=== PATIENT | female | born 1940 | race Caucasian/White ===

== ENCOUNTER 2019-06-28 09:42 | Emergency (ER) | payer MEDICARE ==
--- OUTSIDE RECORDS SUMMARY | 2019-06-28 10:08 | XMS REPORT | Continuity of Care Document ---
:1940 Author Organization [facility] Address [address], [place] [id number] Phone Care Team Providers Name Role Phone Gem Elaine MD Unavailable Unavailable Allergies, Adverse Reactions, Alerts Substance Reaction Status oxycodone Active hydrocodone Active Methotrexate Analogues Active sulfasalazine Active Medications Medication Instructions Dosage Effective Dates Status Comments (start - stop) prednisone 5 mg take 1 tablet by 5 MG - Active tablet oral route every 2 days IBUPROFEN 600 MG TAKE ONE TABLET BY 600 MG - Active TABLET MOUTH EVERY 12 HOURS WITH FOOD NEEDED Xeljanz 5 mg take 1 tablet by 5 MG - Active tablet oral route 2 times every day omeprazole 20 mg take 1 capsule 20 MG - Active Cap, Delayed (20MG) by oral Release route every day before a meal oxybutynin take 1 tablet by 5 MG - Active chloride ER 5 mg oral route every tablet,extended day release 24 hr alendronate 70 mg take 1 tablet by 70 MG - Active tablet oral route every week in the morning, at least 30 min before first food, beverage, or medication of day SPIRIVA RESPIMAT inhale 2 puff by Not Available - Active (unknown strength) inhalation route every day ADVAIR HFA inhale 2 puff by Not Available - Active (unknown strength) inhalation route 2 times every day in the morning and evening tramadol 50 mg take 2 Tablet by 100 MG - Active tablet oral route every 12 hours as needed amlodipine 10 mg take 1 tablet 10 MG - Active tablet (10MG) by oral route every day losartan 25 mg take 1 tablet 25 MG - Active tablet (25MG) by oral route every day Aggrenox 200 mg-25 take 1 capsule by 1.00 capsule - Active mg 12 hr Cap oral route 2 times every day in the morning and evening Calcium 500 + D take 2 by Oral 2 - Active 500 mg (1,250 route every day mg)-200 unit Tab VITAMIN C (unknown taken daily as Not Available - Active strength) directed. multivitamin Tab take 1 tablet by - Active oral route every day with food VYTORIN (unknown unknown strength Not Available - Active strength) used as directed. PREDNISONE 5 MG TAKE ONE TABLET 5 MG - No Longer TABLET EVERY 2 DAYS Active NEEDED Problems Condition Effective Dates Clinical Status Comments (start - stop) Rheu arthritis w rheu factor mult site w/o org/sys involv Other ocean transportation intermediary (current) drug therapy Rheu arthritis w rheu factor mult site w/o org/sys involv Other skilled nursing (current) drug therapy Rheu arthritis w rheu factor mult site w/o org/sys involv Other skilled nursing (current) drug therapy Rheu arthritis w rheu factor mult site w/o org/sys involv Other skilled nursing (current) drug therapy Rheu arthritis w rheu factor mult site w/o org/sys involv Other ocean transportation intermediary (current) drug therapy Rheu arthritis w rheu factor mult site w/o org/sys involv Other skilled nursing (current) drug therapy Rheumatoid arthritis w/ rheumatoid factor of multiple sites w/o organ involvement Other ocean transportation intermediary drug therapy Pain in lt knee Pain in rt knee Rheumatoid arthritis w/ rheumatoid factor of multiple sites w/o organ involvement Other skilled nursing drug therapy Abnormal weight loss Rheumatoid arthritis w/ rheumatoid factor of multiple sites w/o organ involvement Other skilled nursing drug therapy Varicose veins of right leg w/ edema Rheumatoid arthritis w/ rheumatoid factor of multiple sites w/o organ involvement Other ocean transportation intermediary drug therapy Other ocean transportation intermediary drug therapy Rheumatoid arthritis w/ rheumatoid factor of multiple sites w/o organ involvement Other specified abnormal findings of blood chemistry Other skilled nursing drug therapy Back pain Other skilled nursing drug therapy Rheumatoid arthritis w/ rheumatoid factor of multiple sites w/o organ involvement Other specified abnormal findings of blood chemistry Other ocean transportation intermediary drug therapy Rheumatoid arthritis w/ rheumatoid factor of multiple sites w/o organ involvement Other specified abnormal findings of blood chemistry Other skilled nursing drug therapy Back pain Rheumatoid arthritis w/ rheumatoid factor of multiple sites w/o organ involvement Other specified abnormal findings of blood chemistry Other ocean transportation intermediary drug therapy Rheumatoid arthritis w/ rheumatoid factor of multiple sites w/o organ involvement Other ocean transportation intermediary drug therapy Other specified abnormal findings of blood chemistry Rheumatoid arthritis w/ rheumatoid factor of multiple sites w/o organ involvement Other ocean transportation intermediary drug therapy Other specified abnormal findings of blood chemistry Rheumatoid factor positive - Active Rheumatoid arthritis - Active Mapped from [facility] Chronic Conditions table on 08/18/2014 by the ICD9 to [employer] Bulk Mapping Utility. The mapped diagnosis code was Rheumatoid Arthritis, 714.0, added by Gem Elaine MD, with responsible provider Gem Elaine MD, MD. Onset date 02/20/2012; last addressed on 02/18/2014. Hypercholesterolemia Active Chronic obstructive lung Active disease Procedures Procedure Date No information Results Test Name Date and Time Measure Units Reference Range Abnormal Flag Status Comments No information Advance Directives Directive Yes / No Effective Date File Name No information Encounters Encounter Practice Location Reason(s) Diagnoses Date Provider Providers Description For Visit Copied on Encounter Arthritis Arthritis [facility] [place] Specialist: [facility] arthritis Gem. [address] Jaycob Valdovinos [address] [facility], 5794 PLLC [facility] site w/o [facility]/s [place], [place], [address]. [place], skilled nursing [id number], tel:[phone] [place], (current) [place]. [id number] [id number], drug therapy tel:[phone] Provider: [id number] Martir tel:[phone] [facility], [id number] [place]. tel:[phone] Arthritis Arthritis [place] [facility] Gem. [address] PLLC, 5794 PLLC [facility] [place], [place], [place], [place], [id number], [place]. [id number], tel:[phone] tel:[phone] Arthritis Arthritis [facility] Jasmine Specialist: [facility] arthritis WAREHOUSE HANDLER C Jaycob Valdovinos [facility]. [address] [facility], 5[address] PLLC mult site w/o [address], [facility] [place], [place], [facility] [place], [address]. [place], ocean transportation intermediary [place], tel:[phone] [place], [place]) [place], [id number] [id number], drug therapy [id number], ng Provider: [facility]. Martir tel:[phone] tel:[phone] S[place], [id number] [place]. tel:[phone] Arthritis Arthritis Rheu Sep- Jasmine Specialist: Health Health arthritis w WAREHOUSE HANDLER Jaycob [facility] rheu factor 9 Martir. [address] [facility], [address] [place] [address] site w/o [address] [facility], [facility] [place], [place], [place], [address]. [place], skilled nursing [place], tel:[phone] [place], [place], [id number] [id number], drug therapy [id number], ng Provider: [place] . Martir tel:[phone] tel:[phone] [place], [id number] [place]. tel:[phone] [facility] Jasmine Specialist: Health Health arthritis w WAREHOUSE HANDLER Jaycob [facility] rheu factor 8 Martir. [address] [facility], [address] [place] [address] site w/o 5794 [facility] [place], [place], [facility] [place], [address]. [place], skilled nursing [place], tel:[phone] [place], [place]) [place], [id number] [id number], drug therapy [id number], ng Provider: [facility]. Martir tel:[phone] tel:[phone] [place]asha, [id number] 923450 [place]. tel:[phone] Arthritis Arthritis Rheu Sep-2 Taye WAREHOUSE HANDLER-C Specialist: [facility] arthritis Gale. 5[address] Angel Hunter, Associates Associates [facility] factor 8 [facility] [address] [facility], 5794 PLLC mult site w/o [place], [facility], [facility]/sys [place], [place], [place], [address]. [place], ocean transportation intermediary [id number], tel:[phone] [place], ([place]) [place]. [id number] [id number], drug therapy tel:[phone] ng Provider: [id number] Martir tel:[phone] [place], 056310 [place]. tel:[phone] Arthritis Arthritis Sep-0 Taye WAREHOUSE HANDLER-C [facility] Gale. [address] Associates [facility] [address] [place] [address] PLLC, 5794 PLLC [place], [facility] [place], [place], [place], [id number], [place], [place]. [id number], tel:[phone] [place] 533145 tel:[phone] Arthritis Arthritis Aug-0 Taye WAREHOUSE HANDLER-C [facility] Gale. [address] [facility] [address] [place] [address] PLLC, 5794 PLLC [place], [facility] [place], [place], [place], [id number], [place], [place]. [id number], tel:[phone] [place] [phone] tel:[phone] Arthritis Arthritis [facility] Taye WAREHOUSE HANDLER-C Specialist: [facility] arthritis Gale. 5794 Angel Hunter, Associates Associates [facility] factor 8 [facility] [address] [facility], 5794 PLLC mult site w/o [place], [facility], [facility]/sys [place], [place], [place], [place], [address]. [place], ocean transportation intermediary [id number], tel:[phone] [place], ([place]) [place]. [address]Eosgnuy [id number], drug therapy tel:[phone] ng Provider: [id number] Martir tel:[phone] [place], [id number] [place]. tel:[phone] Arthritis Arthritis Rheumatoid Taye WAREHOUSE HANDLER-C Specialist: Health Health arthritis [place]. 5[address] Jaycob Valdovinos Associates rheumatoid 8 [place] [address] [facility], 5794 PLLC factor of [place], Road, [facility] multiple [place], [place], sites [place], [address]. [place], organ [id number], tel:[phone] [place], [place]. [id number] [id number], her skilled nursing tel:[phone] ng Provider: [place] drug [id number] Martir tel:[phone] therapyPain Sasha, [id number] in lt [place]. kneePain in tel:[phone] [place] [phone] Arthritis Arthritis Rheumatoid Taye WAREHOUSE HANDLER-C Specialist: Health Health arthritis Gale. 5[address] Jaycob Valdovinos Associates rheumatoid 8 [place] [address] [facility], 5794 PLLC factor of [place], Road, [facility] multiple [place], [place], [place], sites w/[place], [address]. [place], organ [id number], tel:[phone] [place], [place]. [address]Glptgvs [id number], her ocean transportation intermediary tel:[phone] ng Provider: [place] drug [id number] Martir tel:[phone] therapyAbnorm Sasha, [id number] al weight [place]. loss tel:[phone] Arthritis Arthritis Rheumatoid Taye WAREHOUSE HANDLER-C Specialist: Health Health arthritis w Gale. 5794 Jaycob Valdovinos Associates rheumatoid 7 [place] [address] [facility], 5794 PLLC factor of [place], Road, [facility] multiple [place], [place], sites w/[place], [address]. [place], organ [id number], tel:[phone] [place], [place]. [id number], her skilled nursing tel:[phone] ng Provider: drug [id number] Martir tel:[phone] therapyVarico Sasha, 152766 se veins of [place]. right leg w/ tel:[phone] Arthritis Arthritis Rheumatoid [facility] Referring Health Health arthritis PA-C Provider: Jaycob Devries rheumatoid 7 Lucas. Martir PLLC, 5794 PLLC factor of 5794 [facility], [facility] [place]. [place], [facility] w/o [place], tel:[phone] [place], organ [place], [address] [place], involvementOt [place], [id number], her ocean transportation intermediary [id number], [place] drug therapy [place]. tel:[phone] tel:[phone] Arthritis Arthritis Other long Taye WAREHOUSE HANDLER-C Health Health term drug Gale. 5794 Associates [facility] therapy 7 [facility], 5794 PLLC [facility] [place], [place], [place], [id number], [place], [place]. [id number], tel:[phone] [place] [phone] tel:[phone] Arthritis Arthritis Rheumatoid Taye WAREHOUSE HANDLER-C Referring Health Health arthritis Gale. 5794 Provider: Jaycob Devries rheumatoid 7 [facility] Martir PLL[facility], 5794 PLLC factor of [place], [facility], [facility] multiple [place], [place], [place]. [place], [facility] w/o [place], tel:[phone] [place], organ [id number], [address] [place], involvementOt [place]. [id number], her specified tel:[phone] [place] abnormal [id number] tel:[phone] findings of 837703 blood chemistryOthe r ocean transportation intermediary drug therapyBack pain Arthritis Arthritis Other long Taye WAREHOUSE HANDLER-C Health Health term drug - Gale. 5794 Associates [facility] therapy 6 [facility], 5794 PLLC [facility] [place], [place], [place], [id number], [place], [place]. [id number], tel:[phone] [place] 695537 tel:[phone] Arthritis Arthritis Rheumatoid Taye WAREHOUSE HANDLER-C Referring [facility] arthritis Gale. 5794 Provider: Jaycob [address] Martir PLLC, 5794 PLLC factor of [facility] multiple [place], [place]. [place], [facility] w/o [place], tel:[phone] [place], organ [id number], [address] [place], involvementOt [place]. [id number], her specified tel:[phone] [place] abnormal [id number] tel:[phone] findings of 578103 blood chemistryOthe r skilled nursing drug therapy Arthritis Arthritis Rheumatoid Taye WAREHOUSE HANDLER-C Consulting [facility] arthritis Gale. 5794 Provider: Jaycob [address] PLLC, 5794 PLLC factor of [facility] [place], Hematology [place], [facility] w/o [place], Oncology [place], organ [id number], 500[address] [place], involvementOt [place]. [facility] [id number], her specified tel:[phone] [place] abnormal [id number] 700, E. tel:[phone] findings of [place], 911708 [place], [address]. chemistryOthe tel:[phone] r ocean transportation intermediary 265[address]Qnqvaty drug ng Provider: [facility], [place]. tel:[phone] Arthritis Arthritis Rheumatoid Taye WAREHOUSE HANDLER-C Consulting [facility] arthritis Gale. 5794 Provider: Jaycob [address] PLLC, 5794 PLLC factor of [facility] multiple [place], Hematology [place], sites w/o [place], Oncology [place], organ [id number], 500[address] [place], involvementOt [place]. [facility] [id number], her specified tel:[phone] [place] abnormal [id number], E. tel:[phone] findings of [place], 193628 [place], [address]. chemistryOthe tel:[phone] r ocean transportation intermediary 624[address]Iptvsae drug therapy ng Provider: Martir Baez, [place]. tel:[phone] Arthritis Arthritis Rheumatoid Taye WAREHOUSE HANDLER-C Consulting [facility] arthritis Gale. 5794 Provider: Jaycob deal 6 [facility] PLL[facility], 5794 PLLC factor of [place], [facility], [facility] multiple [place], Hematology [place], [facility] w/o [place], Oncology [place], organ [id number], 5008 [place], involvementOt [place]. [facility] [id number], her ocean transportation intermediary tel:[phone] [place] drug [id number] 700, E. tel:[phone] therapyOther [place], 486626 [place], [address]. abnormal tel:[phone] findings of [address]Avuuuxw blood ng Provider: chemistry Martir Baez, [place]. tel:[phone] Arthritis Arthritis Rheumatoid Taye WAREHOUSE HANDLER-C Referring [facility] arthritis Gale. 5794 Provider: Jaycob deal 5 [facility], 5794 PLLC factor of [place], [facility], [facility] [place], [place]. [place], [facility] w/o [place], tel:[phone] [place], organ [id number], [address] [place], involvementOt [place]. [id number], her skilled nursing tel:[phone] [place] drug [id number] tel:[phone] therapyOther 320692 specified abnormal findings of blood chemistry Arthritis Arthritis [place] Referring [facility] Gem. 5794 Provider: Jaycob Devries [address] [place] [address] [facility] PLLC, 5794 PLLC [facility], [facility] [place], [place]. [place], tel:[phone] [place], [id number], [address] [place], [place]. [id number], tel:[phone] [place] 267676 tel:[phone] Arthritis Arthritis Taye WAREHOUSE HANDLER-C Referring [facility] Gale. 5794 Provider: Associates Associates 5 [facility], 5794 PLLC [place], Sasha, [facility] [place], [place]. [place], tel:[phone] [place], [id number], [address] [place], [place]. [id number], tel:[phone] [place] 347956 tel:[phone] Arthritis Arthritis May-0 Taye WAREHOUSE HANDLER-C Referring Health Health 7-201 Gale. 5794 Provider: Associates Associates 4 [facility], 5794 PLLC [place], [facility], [facility] [place], [place]. [place], tel:[phone] [place], [id number], [address] [place], [place]. [id number], tel:[phone] [place] 552035 tel:[phone] Arthritis Arthritis Dec-0 Taye WAREHOUSE HANDLER-C Referring Health Health 9-201 Gale. 5794 Provider: Associates Associates 3 [facility], 5794 PLLC [place], [facility], [facility] [place], [place]. [place], tel:[phone] [place], [id number], [address] [place], [place]. [id number], tel:[phone] [place] 472991 tel:[phone] Arthritis Arthritis Jan- [place]ELTON Referring Health Health 2-201 Gem. 5794 Provider: Associates Associates 3 [facility], 5794 PLLC [place], [facility], [facility] [place], [place]. [place], tel:[phone] [place], [id number], [address] [place], [place]. [id number], tel:[phone] [place] 314598 tel:[phone] Arthritis Arthritis Aug-2 Taye WAREHOUSE HANDLER-C Referring Health Health 6-201 Gale. 5794 Provider: Associates Associates 3 [facility], 5794 PLLC [place], Sasha, [facility] [place], [place], [place]. [place], tel:[phone] [place], [id number], [address] [place], [place]. [id number], tel:[phone] [place] 105361 tel:[phone] Arthritis Arthritis Nov-2 Taye WAREHOUSE HANDLER-C Referring [facility] Health 7-201 Gale. 5794 Provider: Jaycob Devries 2 [facility] Martir [facility], 5794 PLLC [place], [facility], [facility], [place], [place]. [place], tel:[phone] [place], [id number], [address] [place], [place]. [id number], tel:[phone] [place] 804487 tel:[phone] Arthritis Arthritis Nov-1 Taye WAREHOUSE HANDLER-C Referring Health Health 2-201 [place]ale. 5794 Provider: Jaycob Devries 2 [facility], 5794 PLLC [place], [facility], [facility], [place], [place], tel:[phone] [place], [id number], [address] [place], [place]. [id number], tel:[phone] [place] 813127 tel:[phone] Arthritis Arthritis Triston-2 Taye WAREHOUSE HANDLER-C Referring [facility] Health 8-201 Gale. 5794 Provider: Jaycob Devries 1 [facility], 5794 PLLC [place], [facility], [facility], [place], [place], tel:[phone] [place], [id number], [address] [place], [place]. [id number], tel:[phone] [place] 058281 tel:[phone] Arthritis Arthritis May-0 Stoianoff Referring [facility] Health 6-201 WAREHOUSE HANDLER-C Provider: Associates Associates 1 Carol. Weiss Martir PLLC, 5794 PLLC [facility], [facility], [place], [place]. [place], [place], tel:[phone] [place], [address] [place], [id number], [id number], [place]. [place] tel:[phone] tel:[phone] [id number] Family History Family Member Diagnosis Age At Onset Daughter Rheumatoid arthritis Immunizations Vaccine Date Status Comments Influenza, injectable, MDCK, administered Source: Other Provider Flucelvax Quad 2017-2018Y Influenza, injectable, administered Source: New Immunization trivalent, split virus, 4 Record years and older, Fluvirin [id number] Influenza, split virus, administered Note: approx ; Source: Other injectable, 3 years and older Provider Fluvirin [id number] Influenza virus vaccine, administered Source: Other Provider Injection Influenza virus vaccine, administered Source: Other Provider Injection Not receiving Zoster administered Source: New Immunization Record pneumo (2 yrs or older) administered Source: Other Provider (PPV23) Influenza virus vaccine, administered Source: Other Provider Injection Yet to receive administered Source: Source Unspecified pneumo (2 yrs or older) administered Source: Other Provider (PPV23) Influenza, injectable, MDCK, administered Source: Other Provider preservative free, 0.5 mL dosage, Flucelvax Quad Payers Payer name Insurance type Covered green party ID Authorization(s) Blue [employer] Medicare 16 [id number] [employer] Medicare 16 [id number] Social History Type Description Quantity Date Captured Comments Alcohol Use Details Unknown Caffeine Use Details Unknown Tobacco Use Status Unknown Smoking Status Unknown Sex Female Vital Signs Date / Height Weight BMI Pulse Blood Temperature Respiratory Body Head BMI Pulse Inhaled Time: Rate Pressure Rate Surface Circumference percentile Ox Ox Area No information Chief Complaint And Reason For Visit No information Reason For Referral Reason For Referral No information Plan Of Treatment Date Type Action Status Goal Tobacco cessation counseling completed Goal Tobacco cessation counseling completed Goal Tobacco cessation counseling completed Goal Tobacco cessation counseling completed Referral Ordered: ordered *KNEE X-RAY, 1 OR 2 VIEWS Referral Ordered: ordered EXTREMITY STUDY Right Referral Ordered: ordered Referrals: Hematology. Evaluate and treat Appointment date/timeframe: 08/03/2015 Referral Referred To: ordered [facility]- hand surgeon Ordered: Referral: [facility]- hand surgeon. Consult. Appointment Jeane Moss BOOKED History Of Present Illness Encounter Date Complaint History Of Present Illness No information Functional Status Date Functional Assessment No information Medications Administered Medication Instructions Dosage Effective Dates (start - stop) Status Comments No information Instructions Date Instruction Additional Information Risks/benefits of medications reviewed Labs ordered to check disease activity. Call if symptoms return Labs ordered to check blood counts, liver and kidney functions to monitor safety of medication. Discussed / Reviewed Labs continue same medication plan call if symptoms worsen Labs ordered to check blood counts, liver and kidney functions to monitor safety of medication. Discussed / Reviewed Labs continue same medication plan call if symptoms worsen Labs ordered to check disease activity. Call if symptoms return Risks/benefits of medications reviewed Discussed / Reviewed Labs continue same medication plan call if symptoms worsen Risks/benefits of medications reviewed Labs ordered to check disease activity. Labs ordered to check blood counts, liver and kidney functions to monitor safety of medication. Daily range of motion exercises for symptomatic joints recommended. Reviewed importance of compliance/adherence to medications prescribed Avoid live vaccines Labs ordered to check blood counts, liver and kidney functions to monitor safety of medication. Daily range of motion exercises for symptomatic joints recommended. Discussed / Reviewed Labs hold medication and call if any side effect develops continue same medication plan call if symptoms worsen Conservative medical care measures discussed. Moderate activities regarding symptomatic joints. Labs ordered to check disease activity. Reviewed importance of compliance/adherence to medications prescribed Avoid live vaccines Labs ordered to check blood counts, liver and kidney functions to monitor safety of medication. Discussed / Reviewed Labs hold medication and call if any side effect develops call if symptoms worsen Risks/benefits of medications reviewed Labs ordered to check disease activity. Labs ordered to check blood counts, liver and kidney functions to monitor safety of medication. Discussed / Reviewed Labs hold medication and call if any side effect develops Discussed importance of holding DMARDs/ biologics if patient develops an infection and to notify the treating physician Reviewed importance of compliance/adherence to medications prescribed Avoid OTC NSAIDS Avoid live vaccines Stretching Avoid live vaccines Discussed importance of holding DMARDs/ biologics if patient develops an infection and to notify the treating physician Stretching Reviewed importance of compliance/adherence to medications prescribed Avoid OTC NSAIDS Reviewed importance of compliance/adherence to medications prescribed Avoid live vaccines Discussed importance of holding DMARDs/ biologics if patient develops an infection and to notify the treating physician Stretching Reviewed importance of compliance/adherence to medications prescribed Avoid live vaccines Exercise more Discussed importance of holding DMARDs/ biologics if patient develops an infection and to notify the treating physician Stretching Discussed importance of holding DMARDs/ biologics if patient develops an infection and to notify the treating physician Avoid live vaccines Reviewed importance of compliance/adherence to medications prescribed Discussed importance of holding DMARDs/ biologics if patient develops an infection and to notify the treating physician Reviewed importance of compliance/adherence to medications prescribed Avoid live vaccines
--- OUTSIDE RECORDS SUMMARY | 2019-06-28 10:08 | XMS REPORT | Continuity of Care Document ---
:1940 Author Organization [facility] Address [address] [place], [place] [id number] Phone Care Team Providers Name Role Phone [...] factor mult site w/o org/sys involv Other exterminator helper termite (current) drug therapy Rheu arthritis w rheu factor mult site w/o org/sys involv Other longterm (current) drug therapy Rheu arthritis w rheu factor mult site w/o org/sys involv Other longterm (current) drug therapy Rheu arthritis w rheu factor mult site w/o org/sys involv Other longterm (current) drug therapy Rheu arthritis w rheu factor mult site w/o org/sys involv Other exterminator helper termite (current) drug therapy Rheu arthritis w rheu factor mult site w/o org/sys involv Other longterm (current) drug therapy Rheumatoid arthritis w/ rheumatoid factor of multiple sites w/o organ involvement Other exterminator helper termite drug therapy Pain in lt knee Pain in rt knee Rheumatoid arthritis w/ rheumatoid factor of multiple sites w/o organ involvement Other longterm drug therapy Abnormal weight loss Rheumatoid arthritis w/ rheumatoid factor of multiple sites w/o organ involvement Other longterm drug therapy Varicose veins of right leg w/ edema Rheumatoid arthritis w/ rheumatoid factor of multiple sites w/o organ involvement Other exterminator helper termite drug therapy Other exterminator helper termite drug therapy Rheumatoid arthritis w/ rheumatoid factor of multiple sites w/o organ involvement Other specified abnormal findings of blood chemistry Other longterm drug therapy Back pain Other longterm drug therapy Rheumatoid arthritis w/ rheumatoid factor of multiple sites w/o organ involvement Other specified abnormal findings of blood chemistry Other exterminator helper termite drug therapy Rheumatoid arthritis w/ rheumatoid factor of multiple sites w/o organ involvement Other specified abnormal findings of blood chemistry Other longterm drug therapy Back pain Rheumatoid arthritis w/ rheumatoid factor of multiple sites w/o organ involvement Other specified abnormal findings of blood chemistry Other exterminator helper termite drug therapy Rheumatoid arthritis w/ rheumatoid factor of multiple sites w/o organ involvement Other exterminator helper termite drug therapy Other specified abnormal findings of blood chemistry Rheumatoid arthritis w/ rheumatoid factor of multiple sites w/o organ involvement Other exterminator helper termite drug therapy Other specified abnormal findings of blood chemistry Rheumatoid factor positive - Active Rheumatoid arthritis - Active Mapped from [facility] Chronic Conditions table on 08/18/2014 by the ICD9 to [employer] Bulk Mapping Utility. The mapped diagnosis code was Rheumatoid Arthritis, 714.0, added by Gem Elaine MD, with responsible provider Gem Elaine MD, MD. Onset date 02/20/2012; last addressed on 02/18/2014. Hypercholesterolemia Active Chronic obstructive lung Active disease Procedures Procedure Date ROUTINE VENIPUNCTURE COMPLETE CBC W/AUTO DIFF WBC RBC SED RATE, AUTOMATED C-REACTIVE PROTEIN ASSAY OF CREATININE OFFICE/OUTPATIENT VISIT, EST TRANSFERASE (AST) (SGOT) ALANINE AMINO (ALT) (SGPT) ASSAY OF SERUM ALBUMIN Results Test Name Date and Time Measure Units Reference Range Abnormal Flag Status Comments Panel Description: CBC Final WBC 14:51:00 7.8 10*3/uL 3.7-10.1 Final RBC 14:51:00 5.14 10*6/uL 3.50-5.50 Final HGB 14:51:00 14.0 g/dL 12.0-16.0 Final HCT 14:51:00 45.6 % 36.0-48.0 Final MCV 14:51:00 88.6 fL 80.0-100.0 Final MCH 14:51:00 27.2 pg 26.0-34.0 Final MCHC 14:51:00 30.7 g/dL 31.0-37.0 L Final RDW 14:51:00 16.0 % 10.0-15.0 H Final PLATELETS 14:51:00 287 10*3/uL 150-500 Final MPV 14:51:00 5.6 fL 6.0-10.0 L Final BARRERA# 14:51:00 5.19 10*3/uL 2.10-8.00 Final LYM# 14:51:00 1.67 10*3/uL 1.00-5.00 Final MONO# 14:51:00 0.72 10*3/uL 0.10-1.00 Final EOS# 14:51:00 0.1 10*3/uL 0.0-0.5 Final BASO# 14:51:00 0.1 10*3/uL 0.0-0.2 Final BARRERA% 14:51:00 66.9 % 50.0-80.0 Final LYM% 14:51:00 21.5 % 25.0-50.0 L Final MONO% 14:51:00 9.3 % 2.0-10.0 Final EOS% 14:51:00 1.4 % 0.0-5.0 Final BASO% 14:51:00 0.9 % 0.0-4.0 Final Panel Description: ESR Final ESR 14:51:00 34 mm/Hr 0-20 H Final Panel Description: ALBUMIN Final ALB 14:51:00 3.7 g/dL 3.4-4.4 Final Panel Description: ALT Final ALT 14:51:00 13 U/L 30-65 L Final Panel Description: AST Final AST 14:51:00 24 U/L 15-37 Final Panel Description: CREATININE Final CREATININE 14:51:00 1.1 mg/dL 0.6-1.2 Final eGFR 14:51:00 48.2 mL/min/1.73m Final Panel Description: CRP Final CRP 14:51:00 3.0 mg/dL 0.0-1.0 H Final Advance Directives Directive Yes / No Effective Date File Name No information Encounters Encounter Practice Location Reason(s) Diagnoses Date Provider Providers Description For Visit Copied on Encounter OFFICE/OUTPA Arthritis Arthritis Rheumatoid Rheu [place] SKELTON Specialist: KIKI NEWSOME, [facility] arthritis arthritis w Gem. [address] [facility] ([facility] factor 9 [facility] [address] complaint) [facility] w/o org/sys [place], [facility] [place], [address]. [place], exterminator helper termite [id number], tel:[phone] [place], (current) [place]. [id number], drug therapy tel:[phone] ng Provider: [id number] Martir tel:[phone] [place], [id number] [place] tel:[phone] Arthritis Arthritis Rheu Jasmine Specialist: [facility] Health arthritis w RADIO REPAIRER DOMESTIC Meena [facility] factor 9 [facility]. [address], [address] [facility] site [address] [place] [address] w/o org/sys [facility] [place], [place], [facility] [place], [address]. [place], longterm [place], tel:[phone] [place], ([place]) [place], [id number], drug therapy [id number], ng Provider: . Martir tel:[phone] tel:[phone] [place]asha, [phone] [id number] [place]. tel:[phone] Arthritis Arthritis Rheu Jasmine Specialist: [facility] arthritis w RADIO REPAIRER DOMESTIC [facility] factor 9 [facility]. [address], [address] [facility] [address] [place] [address] w/o org/sys [facility] [place], [place], [place], [address]. [place], exterminator helper termite [place], tel:[phone] [place], ([place], [id number], drug therapy [id number], ng Provider: [facility]. Martir tel:[phone] tel:[phone] Sasha, [phone] [place]. tel:[phone] Arthritis Arthritis Rheu Jasmine Specialist: Health Health arthritis w RADIO REPAIRER DOMESTIC C [facility] rheu factor 8 Martir. [address], [address] mult site [address] [facility] w/o org/sys [facility] [place], [place], [address]. [place], longterm [place], tel:[phone] [place], [place], [id number] [id number], drug therapy [id number], ng Provider: [place] . Martir tel:[phone] tel:[phone] Sasha, 916847 968017 [place]. tel:[phone] Arthritis Arthritis Rheu Specialist: Health Health arthritis w [facility] rheu factor 8 [address], [address] [facility] w/o org/sys [place], [facility], [address]. [place], longterm tel:[phone] [place], (current) [id number], drug therapy ng Provider: [place] Mcmahan tel:[phone] [place], [id number] [place]. tel:[phone] Arthritis Arthritis Feb-0 [facility] [address], [address], [id number], [place] tel:[phone] Arthritis Arthritis Jan-0 [facility], [address], [id number], [place] tel:[phone] Arthritis Arthritis Rheu Specialist: Health Health arthritis w [facility] rheu factor 8 [address], [address] [facility] w/o org/sys [place], [place], [place], [address]. [place], exterminator helper termite tel:[phone] [place], (current) [id number], drug therapy ng Provider: [place] Mcmahan tel:[phone] [place], [id number] [place]. tel:[phone] Arthritis Arthritis Rheumatoid Specialist: Health Health arthritis [facility] rheumatoid 8 [address], [address] [facility] factor [facility] [place], [place], sites [place], [address]. [place], organ tel:[phone] [place], involvementO [id number], ther long ng Provider: [place] term drug Martir tel:[phone] therapyPain Sasha, [id number] in lt [place]. kneePain in tel:[phone] [place] [phone] Arthritis Arthritis Rheumatoid Specialist: Health Health arthritis [facility] rheumatoid 8 [address], [address] [facility] [facility] multiple [place], [place], sites [place], [address]. [place], organ tel:[phone] [place], involvementO [id number], ther long ng Provider: [place] term drug Martir tel:[phone] therapyAbnor Sasha, [id number] mal weight [place]. loss tel:[phone] Arthritis Arthritis Rheumatoid Specialist: Health Health arthritis [facility] rheumatoid 7 [address], [address] PLL[address] factor [facility] [place], [place], sites [place], [address]. [place], organ tel:[phone] [place], involvementO [id number], ther long ng Provider: [place] term drug Martir tel:[phone] therapyVaric Sasha, 179634 ose veins of [place]. right leg w/ tel:[phone] edema [phone] Arthritis Arthritis Rheumatoid [facility] Health arthritis PA-C Provider: Jaycob Devries rheumatoid 7 Lucas. [facility]ir PLLC, [address] PLLC factor of [address] Sasha, [facility] w/o [place], tel:[phone] [place], organ [place], [address] [place], [place]O [place], [id number], ther long [id number], [place] term drug [place]. tel:[phone] therapy tel:[phone] Arthritis Arthritis Other long [facility] Health term drug Associates Jaycob therapy 7 PLLC, [address], [id number], [place] tel:[phone] Arthritis Arthritis Rheumatoid [facility] arthritis Provider: Jaycob Devries rheumatoid 7 [facility] PLL[facility], [address] PLLC factor of [facility] w/o tel:[phone] [place], organ [address] [place], involvementO [id number], ther [place] specified tel:[phone] abnormal [phone] findings of blood chemistryOth er longterm drug therapyBack pain Arthritis Arthritis Other long [facility] Health term drug Associates Jaycob therapy 6 PLLC, [address], [place], [id number], [place] tel:[phone] Arthritis Arthritis Rheumatoid [facility] arthritis Provider: Jaycob Devries rheumatoid 6 [facility] [facility], [address] PLL[address] factor [place]. [place], [facility] w/o tel:[phone] [place], organ [address] [place], involvementO [id number], ther [place] specified tel:[phone] abnormal [id number] findings of blood chemistryOth er exterminator helper termite drug therapy Arthritis Arthritis Rheumatoid [facility] arthritis Provider: Jaycob Devries rheumatoid 6 Queenie PLLC, [address] PLLC factor of [facility] [place], [facility] w/o Oncology [place], organ [address]8 [place], involvementO [place] [id number], [address] [place] specified 700, E. tel:[phone] abnormal [place], 710481 [place], [address]. blood tel:[phone] chemistryOth [id number] er longterm ng Provider: drug Martir Taylorndi, pain [place]. tel:[phone] Arthritis Arthritis Rheumatoid [facility] arthritis Provider: Jaycob Devries rheumatoid 6 Queen[address] PLLC, 5[address] PLLC factor of [facility], sites w/o Oncology [place], organ [address] [place], involvementO [facility] [place] [id number], [address] [place] specified 700, E. tel:[phone] abnormal [place], 067700 [place], [address]. blood tel:[phone] chemistryOth 157[address]Fnyudof er exterminator helper termite ng Provider: drug therapy Martir Baez, [facility], [place]. tel:[phone] Arthritis Arthritis Rheumatoid Consulting [facility] arthritis Provider: Jaycob Devries rheumatoid 6 [address] PLLC, [address] PLLC factor of [facility], [facility] w/o Oncology [place], organ [address] [place], involvementO [facility] [id number], ther long [address] [place] term drug 700, E. tel:[phone] therapyOther [place], 769109 [place], [address]. abnormal tel:[phone] findings of [address]Atzongw blood ng Provider: chemistry Martir Baez, [facility], [place]. tel:[phone] Arthritis Arthritis Rheumatoid Referring [facility] arthritis Provider: Jaycob Devries rheumatoid 5 [address] PLLC, [address] PLLC factor of [facility] w/o tel:[phone] [place], organ [address] [place], involvementO [id number], ther long [place] term drug tel:[phone] therapyOther [id number] specified abnormal findings of blood chemistry Arthritis Arthritis [place] SKEL[place] [facility] Gem. 5794 Provider: Associates Associates 5 Yemi Mcmahan PLLC, [address] PLL[address] [place], Sasha, [facility] [place], [place], [place], tel:[phone] [place], [id number], [address] [place], [place]. [id number], tel:[phone] [place] 822281 tel:[phone] Arthritis Arthritis Referring [facility] Health Provider: Associates Associates 5 [address] PLLC, [address] PLLC Sasha, [facility] [place]. [place], tel:[phone] [place], [address] [place], [id number], [place] tel:[phone] Arthritis Arthritis October- Referring Health Health Provider: Associates Jaycob 4 [address] [facility], [address] PLLC Sasha, [facility] [place], tel:[phone] [place], [address] [place], [id number], [place] tel:[phone] Arthritis Arthritis May- Referring Health Health Provider: Associates Jaycob 3 [address] [facility], [address] PLLC Sasha, [facility] [place]. [place], tel:[phone] [place], [address] [place], [id number], [place] tel:[phone] Arthritis Arthritis [place] SKELTON Referring Health Health Gem. 5794 Provider: Associates Jaycob 3 [facility] Mc[facility], [address] PLL[address] [place], Sasha, [facility] [place], [place], [place], tel:[phone] [place], [id number], [address] [place], [place]. [id number], tel:[phone] [place] 033274 tel:[phone] Arthritis Arthritis Aug- Referring Health Health Provider: Associates Jaycob 3 [address] [facility], [address] PLL[address] Sasha, [facility] [place], [place]. [place], tel:[phone] [place], [address] [place], [id number], [place] tel:[phone] Arthritis Arthritis Apr- Referring Health Health Provider: Associates Associates 2 [address] PLLC, [address] PLLC Sasha, [place]. [place], tel:[phone] [place], [address] [place], [id number], [place] tel:[phone] Arthritis Arthritis Apr- [facility] 2- Provider: Associates Jaycob 2 [address] PLLC, [address] PLLC Sasha, [place], tel:[phone] [place], [address] [place], [id number], [place] tel:[phone] Arthritis Arthritis Dec- [facility] 8 Provider: Associates Associates 1 [address] [facility]C, [address] PLLC Sasha, [place], tel:[phone] [place], [address] [place], [id number], [place] tel:[phone] Arthritis Arthritis [facility] 6 RADIO REPAIRER DOMESTIC-C Provider: Associates Jaycob 1 Ainsley. Isela [facility] PLLC, [address] PLL[address] S Beauty Sasha, [facility] [address], [place]. [place], [place], tel:[phone] [place], [address] [place], [id number], [id number], [place]. [place] tel:[phone] tel:[phone] [phone] Family History Family Member Diagnosis Age At Onset Daughter Rheumatoid arthritis Immunizations Vaccine Date Status Comments Influenza, injectable, MDCK, administered Source: Other Provider Flucelvax Quad 2017-2018Y Influenza, injectable, administered Source: New Immunization trivalent, split virus, 4 Record years and older, Fluvirin [id number] Influenza, split virus, administered Note: approx ; Source: Other injectable, 3 years and older Provider Fluvirin [id number] Influenza virus vaccine, administered Source: Other Provider [...] Quad Payers Payer name Insurance type Covered libertarian ID Authorization(s) Blue Shield Medicare 16 [id number] Blue [employer] Medicare 16 [id number] Social History Type Description Quantity Date Captured Comments Alcohol Use Details Caffeine Use Details coffee 3 cups per day Tobacco Use Status Ex-cigarette smoker Smoking Status Former smoker Smoking Tobacco Use Cigarette: No Details Available Cigarette: No Details Available Details Sex Female Vital Signs Date / Height Weight BMI Pulse Blood Temperature Respiratory Body Head BMI Pulse Inhaled Time: Rate Pressure Rate Surface Circumference percentile Ox Ox Area 61.00 121.00 22.8 130/70 in lbs 6 mm[Hg] 2:27 kg/m PM eter (2) Chief Complaint And Reason For Visit Most recent encounter only, dated '05/22/2019 14:20'. Rheumatoid arthritis (chief complaint). Description: The pain severity is 3/10. Patient denies having generalized morning stiffness, fever, rash, oral ulcers (mouth sores) and shortness of breath (dyspnea). Reason For Referral Reason For Referral No [...] Encounter Date Complaint History Of Present Illness Rheumatoid arthritis The pain severity is 3/10. Patient denies having generalized morning stiffness, fever, rash, oral ulcers (mouth sores) and shortness of breath (dyspnea). Functional Status Date Functional Assessment No information [...] symptomatic joints recommended. Discussed / Reviewed Labs continue same medication plan call if symptoms worsen Reviewed importance of compliance/adherence to medications prescribed Avoid live vaccines Labs ordered to check blood counts, liver and kidney functions to monitor safety of medication. Daily range of motion exercises for symptomatic joints recommended. Discussed / Reviewed Labs hold medication and call if any side effect develops continue same medication plan call if symptoms worsen Reviewed importance of compliance/adherence to medications prescribed Avoid live vaccines Conservative medical care measures discussed. Moderate activities regarding symptomatic joints. Labs ordered to check disease activity. Labs [...] and call if any side effect develops Reviewed importance of compliance/adherence to medications prescribed Avoid OTC NSAIDS Avoid live vaccines Discussed importance of holding DMARDs/ biologics if patient develops an infection and to notify the treating physician Stretching Discussed importance of holding DMARDs/ biologics if patient develops an infection and to notify the treating physician Stretching Avoid live vaccines Reviewed importance of compliance/adherence [...]
[2019-06-28 10:17] VITALS: BP 151/90
--- NOTE | 2019-06-28 10:28 | UC ---
Complaint Female HPI - HPI Summary HPI Summary: Patient is a 78yo female presenting with urinary frequency x3 days. Patient states she is "going every hour." Denies dysuria and hematuria. Denies abdominal pain. Denies flank pain. Does note upper back pain but states that is usual for her. Notes intermittent nausea. Denies vomiting. Denies changes in BMs. Deneis fever and chills. Notes decreased appetite x2 days. Denies decreased fluid intake. Denies taking anything for symptom relief. - History Of Current Complaint Stated Complaint: URINARY Hx Obtained From: Patient Onset/Duration: Gradual Onset, Lasting Days Pain Intensity: 0 - Allergies/Home Medications Allergies/Adverse Reactions: Allergies Allergy/AdvReac Type Severity Reaction Status Date / Time hydrocodone Allergy Rash Verified 06/28/19 10:17 oxycodone Allergy Shortness Verified 06/28/19 10:17 of Breath Home Medications: Home Medications Alendronate Sodium 10 mg PO DAILY 06/28/19 [History Confirmed 06/28/19] Memantine TAB* [Namenda TAB*] 5 mg PO DAILY 06/28/19 [History Confirmed 06/28/19 ] Oxybutynin XL TAB* [Ditropan XL TAB*] 5 mg PO DAILY 06/28/19 [History Confirmed 06/28/19] Tofacitinib Citrate [Xeljanz] 10 mg PO DAILY 06/28/19 [History Confirmed ] raNITIdine HCl [Ranitidine HCl] 75 mg PO DAILY 06/28/19 [History Confirmed 06/28] PMH/Surg Hx/FS Hx/Imm Hx Cardiovascular History: Hypertension - Surgical History Surgical History: Yes Surgery Procedure, Year, and Place: Carotid Artery, 2005 - Social History Alcohol Use: None Substance Use Type: None Smoking Status (MU): Light Every Day Tobacco Smoker Type: Cigarettes Amount Used/How Often: 1 pack every 3-4 days Length of Time of Smoking/Using Tobacco: 55 Years Have You Smoked in the Last Year: Yes Review of Systems All Other Systems Reviewed And Are Negative: Yes Constitutional: Positive: Fatigue. Negative: Fever, Chills Respiratory: Positive: Negative Cardiovascular: Positive: Negative Gastrointestinal: Positive: Nausea. Negative: Abdominal Pain, Vomiting, Diarrhea Genitourinary: Positive: Frequency, Urgency. Negative: Dysuria, Hematuria Musculoskeletal: Positive: Negative Neurological: Positive: Negative Physical Exam Triage Information Reviewed: Yes Appearance: Well-Appearing, No Pain Distress, Well-Nourished Vital Signs: Initial Vital Signs Temp 98.4 F 06/28/19 10:10 Pulse 93 06/28/19 10:10 Resp 18 06/28/19 10:10 BP 151/90 06/28/19 10:10 Pulse Ox 97 06/28/19 10:10 Lab Results 06/28/19 Range/Units 10:48 POC Urine Color Yellow POC Urine Clarity Clear POC Urine pH 6.0 (5-9) POC Ur Specif [place] 1.010 (1.010-1.030) POC Urine Protein Negative (Negative) POC Ur Glucose (UA) Negative (Negative) POC Urine Ketones Negative (Negative) POC Urine Blood 1+ A (Negative) POC Urine Nitrite Negative (Negative) POC Urine Bilirubin 1+ A (Negative) POC Urine Urobilinogen 0.2 (Negative) POC U Leukocyte Esteras 1+ A (Negative) Vital Signs Reviewed: Yes Eyes: Positive: Conjunctiva Clear ENT: Positive: Hearing grossly normal Neck: Positive: Supple Respiratory Exam: Normal Respiratory: Positive: Lungs clear, Normal breath sounds, No respiratory distress Cardiovascular Exam: Normal Cardiovascular: Positive: RRR, No Murmur Abdominal Exam: Normal Abdomen Description: Positive: Nontender, Soft. Negative: CVA Tenderness (R), CVA Tenderness (L), Distended, Guarding Bowel Sounds: Positive: Present Neurological: Positive: Alert Psychological: Positive: Age Appropriate Behavior Skin Exam: Normal Complaint Female Dx - Course Course Of Treatment: 78yo female presenting with urinary frequency and urgency x3 days. VS normal. I discussed uti with patient and treated with bactrim. Instructed her to return or follow up with pcp if symptoms do not begin to resolve within 1-2 days. Educated on worsening uti and instructed to go to ED with new or worsening symptoms. Patient voiced understanding and agreed with treatment plan. - Differential Dx/Diagnosis Provider Diagnosis: UTI (urinary tract infection), uncomplicated Discharge ED - Sign-Out/Discharge Documenting (check all that apply): Patient Departure All imaging exams completed and their final reports reviewed: No Studies - Discharge Plan Condition: Stable Disposition: HOME Prescriptions: Sulfamethox/Trimethoprim DS* [Bactrim DS 800/160 TAB*] 1 tab PO BID #10 tab Patient Education Materials: Urinary Tract Infection in Women (ED) Referrals: Karoline Sauceda PA [Primary Care Provider] - If Needed Additional Instructions: As discussed, take Bactrim as prescribed for treatment of your UTI. Take this with food to avoid stomach upset. Increase your fluid intake. Follow up with your PCP if symptoms do not begin to resolve within 1-2 days. Return or go to emergency room with any new or worsening symptoms, including fever, lower back pain, or vomiting. - Billing Disposition and Condition Condition: STABLE Disposition: Home
== END 2019-06-28 11:16 | disposition home or self-care (01) ==
LOC: UCCORT 09:42
DX: N39.0 Urinary tract infection, site not specified (principal); I10 Essential (primary) hypertension; F17.210 Nicotine dependence, cigarettes, uncomplicated; R53.83 Other fatigue; R11.0 Nausea; Z88.5 Allergy status to narcotic agent
CPT/HCPCS: 81003; 87086; 99212; G0463